=== PATIENT | female | born 1965 | race Native Hawaiian/Other Pacific Islander ===

== ENCOUNTER 2018-05-14 12:32 | Outpatient (CLI) | payer OTHER | END 2018-05-14 23:16 | disposition home or self-care (01) | LOC: LABW 12:32 | DX: F41.8 Other specified anxiety disorders (principal); G47.09 Other insomnia; R53.83 Other fatigue; Z79.899 Other long term (current) drug therapy; Z51.81 Encounter for therapeutic drug level monitoring | CPT/HCPCS: 82679 ==